=== PATIENT | male | born 1955 | race African-American/Black ===

== ENCOUNTER 2017-06-25 13:47 | Observation (INO) | payer BC ==
[~2017-06-25] VITALS: Ht 185.4 cm; Wt 127.8 kg
[~2017-06-25 13:47] MED LIST: BUMEX1 MG PO; COZAAR100 MG PO; CRESTOR10 MG PO; HYDROCODON-ACE1 EAC7 PO; HYTRIN5 MG PO; VICTOZA0.6 MG/0.1 SC; ZYLOPRIM100 MG PO
[2017-06-25 14:51] LABS: HEMATOCRIT 49.1 % (38.0-50.0); HEMOGLOBIN 16.5 G/DL (12.5-16.6); MCH 29.3 PG (29.0-34.0); MCHC 33.6 G/DL (30.0-36.0); MCV 87.1 FL (86-99); PLATELET COUNT 88 K/uL (156-360); RBC DIS.WIDTH-CV 13.4 % (11.8-14.6); RBC DIS.WIDTH-SD 42.9 % (39-53); RED BLOOD COUNT 5.64 M/uL (4.00-5.50); WHITE BLOOD COUNT 7.1 K/uL (4.1-10.2)
[2017-06-25 14:58] LABS: CHLORIDE 109 mEq/L (99-109); POTASSIUM 4.4 mEq/L (3.7-5.4); SODIUM 138 mEq/L (136-147)
[2017-06-25 14:59] LABS: GLUCOSE 91 mg/dL (70-99)
[2017-06-25 15:03] LABS: CREATININE 1.4 mg/dL (0.6-1.3); GFR ESTIMATE (CALCULATED) > 59 mL/min/ (58.99-99999)
[2017-06-25 15:04] LABS: UREA NITROGEN (BUN) 24 mg/dL (9-23)
[2017-06-25 15:07] LABS: TROP-I INTERPRETATION NEGATIVE; TROPONIN-I 0.18 ng/mL (0.0-0.30)
[2017-06-25 17:37] LABS: TROP-I INTERPRETATION NEGATIVE; TROPONIN-I 0.21 ng/mL (0.0-0.30)
[2017-06-25] MEDS ORDERED: VITAMIN D32000 UNI1 PO (17:53)
[2017-06-25] MEDS ORDERED: VITAMIN B122500 MCG PO (17:54)
[2017-06-25] MEDS ORDERED: VITAMIN C500 M6 PO (17:54)
[2017-06-25] MEDS ORDERED: VIAGRA100 MG PO (17:55)
[2017-06-25] MEDS ORDERED: XANAX0.5 MG PO (17:55)
[2017-06-25] MEDS ORDERED: TESTOSTERO200 MG/12 IM (17:56)
[2017-06-25] MEDS ORDERED: CINNAMON500 MG PO (17:57)
[2017-06-25] MEDS ORDERED: MEN'S ONE DAIL1 EACH PO (17:57)
[2017-06-25] MEDS ORDERED: SELENIUM200 MCG PO (17:57)
[2017-06-25] MEDS ORDERED: KRILL OIL500 MG PO (17:58)
[2017-06-25] MEDS ORDERED: IRON18 MG PO (17:58)
[2017-06-25 18:11] LABS: HDL CHOLESTEROL 44 MG/DL (Desirable>=40); LDL CHOLESTEROL 117 mg/dL (Desirable<100); NON-HDL CHOLESTEROL 133 mg/dL (Desirable<160); TOTAL CHOLESTEROL 177 mg/dL (Desirable<200); TRIGLYCERIDES 79 MG/DL (Normal: <150)
[2017-06-25 18:43] VITALS: BP 178/109
[2017-06-25 19:05] LABS: THYROTROPIN (TSH) 0.55 MIU/L (0.4-5.5)
[2017-06-25 21:32] LABS: TROP-I INTERPRETATION NEGATIVE; TROPONIN-I 0.21 ng/mL (0.0-0.30)
[2017-06-26 00:22] VITALS: BP 138/93
[2017-06-26 02:57] LABS: TROP-I INTERPRETATION NEGATIVE; TROPONIN-I 0.19 ng/mL (0.0-0.30)
[2017-06-26 04:00] VITALS: BP 155/86
[2017-06-26 05:35] LABS: D-DIMER ELISA < 150.00 ng/mLDDU (<230)
[2017-06-26 05:55] LABS: CHLORIDE 107 MEQ/L (99-109); CREATININE 1.5 MG/DL (0.6-1.3); GFR ESTIMATE (CALCULATED) > 59 mL/min/ (58.99-99999); POTASSIUM 4.5 MEQ/L (3.7-5.4); SODIUM 141 MEQ/L (136-147); UREA NITROGEN (BUN) 18 mg/dL (9-23)
[2017-06-26 06:00] LABS: GLUCOSE 117 mg/dL (70-99)
[2017-06-26 07:15] VITALS: BP 138/90
[2017-06-26] MEDS ORDERED: ELIQUIS5 MG PO (10:43)
[2017-06-26] MEDS ORDERED: LOPRESSOR25 MG PO (10:43)
[2017-06-26] MEDS ORDERED: ASPIR-LOW81 MG PO (10:43)
[2017-06-26] MEDS ORDERED: LISINOPRIL10 MG PO (10:43)
== END 2017-06-26 12:28 | disposition home or self-care (01) ==
LOC: EME 13:47 → EDOF 16:58 → 5WEST 16:58 → EDOF 16:58 → ENRESERV 16:59 → 5WEST 18:07 → ENPENDDIS 06-26 → 5WEST 06-26 12:28
PROVIDERS: Emergency Medicine; Internal Medicine; Internal Medicine Cardiovascular Disease
DX: I48.91 Unspecified atrial fibrillation (principal); I10 Essential (primary) hypertension; Z98.84 Bariatric surgery status; E11.9 Type 2 diabetes mellitus without complications; E78.5 Hyperlipidemia, unspecified; N40.0 Benign prostatic hyperplasia without lower urinary tract symptoms; E66.01 Morbid (severe) obesity due to excess calories; Z68.37 Body mass index [BMI] 37.0-37.9, adult; D69.6 Thrombocytopenia, unspecified; Z88.2 Allergy status to sulfonamides
CPT/HCPCS: 71046; 80048; 80061; 81003; 83880; 84443; 84484; 85027; 85379; 93005; 99281; 99285; G0378